=== PATIENT | female | born 1985 | race Caucasian/White ===

== ENCOUNTER → 2020-01-31 16:30 | Outpatient (CLI) | payer OTHER, SELFPAY ==
[2020-01-31 17:27] LABS: Add Manual Diff / Slide Review NO; Basophils Absolute Auto 100 /uL (0-100); Basophils Percent Auto 0.7 % (0-2); Eosinophils Absolute Auto 100 /uL (0-450); Eosinophils Percent Auto 1.4 % (2-4); Hemoglobin 14.1 g/dL (12.0-16.0); Lymphocytes Absolute Auto 2100 /uL (1100-4500); Lymphocytes Percent Auto 23.3 % (25-40); Mean Corpuscular HGB Conc 34.3 % (30-36); Mean Corpuscular Hemoglobin 30.2 PG (26-34); Mean Corpuscular Volume 88.3 fL (80-100); Monocytes Absolute Auto 500 /uL (0-900); Monocytes Percent Auto 5.3 % (3-14); Neutrophils Absolute Auto 6400 /uL (1500-7000); Neutrophils Percent Auto 69.3 % (50-75); Platelet Count 326 X10^3/uL (150-400); Red Blood Cell Count 4.65 X10^6/uL (4.0-5.2); Red Cell Distribution Width 13.8 % (11.6-14.8); White Blood Cell Count 9.2 X10^3/uL (4.5-11.0)
[2020-01-31 18:11] LABS: Appearance Urine UA CLEAR; Bilirubin Urine UA NEGATIVE (NEGATIVE); Color Urine UA YELLOW; Glucose Urine UA NEGATIVE (Negative); Ketones Urine UA NEGATIVE (NEGATIVE); Leukocyte Esterase Urine UA NEGATIVE (NEGATIVE); Nitrite Urine UA NEGATIVE (Negative); Occult Blood Urine UA TRACE-LYSED (Negative); Protein Urine UA NEGATIVE (Negative); Urobilinogen Urine UA 0.2 E.U./dL (0.2)
[2020-01-31 18:12] LABS: Hepatitis B Surface Antigen NEGATIVE s/c (NEGATIVE)
[2020-01-31 18:14] LABS: pH Urine UA 5.5 (4.5-8.0)
[2020-01-31 18:28] LABS: HIV 1 & 2 Ab/Ag 4th Gen Combo NEGATIVE (NEGATIVE); Hep C Virus Ab w/Reflex Quant NEGATIVE s/c (NEGATIVE)
[2020-02-01 05:36] LABS: RPR Screen Non Reactive (Non Reactive)
[2020-02-01 10:12] LABS: Varicella IgG Antibody 2693 index (Immune >165)
== END ==
PROVIDERS: Referring Provider Specialist; Visit Provider Specialist
DX: O09.521 Supervision of elderly multigravida, first trimester (principal)
CPT/HCPCS: 36415; 80055; 81003; 86787; 86803; 86850; 86900; 86901; 87086; 87389

== ENCOUNTER → 2020-02-29 14:41 | Outpatient (CLI) | payer OTHER, SELFPAY | PROVIDERS: Referring Provider Specialist; Visit Provider Specialist | DX: O09.529 Supervision of elderly multigravida, unspecified trimester (principal); Z36.0 Encounter for antenatal screening for chromosomal anomalies; Z3A.12 12 weeks gestation of pregnancy | CPT/HCPCS: 36415; 81420 ==

== ENCOUNTER → 2020-04-25 13:27 | Outpatient (CLI) | payer OTHER, SELFPAY ==
--- NOTE | 2020-04-25 | DI.US.S_ITS ---
PROCEDURE: US OB >= 14 WEEKS FETUS INDICATIONS: ANATOMY OUTSIDE/PRIOR DATING DATA: Last menstrual period (LMP): Unknown. LMP-based estimated date of delivery (RANULFO): Unknown . First dating scan (date and location): This examination . Estimated date of delivery (RANULFO) from first dating scan: 09/10/20 . TECHNIQUE: Real-time scanning was performed of the fetus, with image documentation and biometric measurements. Endovaginal scanning: Not performed COMPARISON: None. FINDINGS: General: A single living intrauterine gestation is present. Presentation: Variable. Placenta: Placental position is posterior , without previa. Amniotic fluid index: 16.5 cm, normal range is 5-24 cm. Largest pocket 5.6 cm heart rate: 139 beats per minute. Maternal cervical canal: 4.0 cm long. Normal lower limit is 2.5 cm. biometrics: Biparietal diameter: 4.8 cm, 20 weeks 4 days Head circumference: 17.4 cm, 20 weeks 0 days Abdominal circumference: 15.4 cm, 20 weeks 4 days Femur length: 3.2 cm, 20 weeks 0 days Estimated gestational age from initial scan: not applicable. Composite gestational age from present scan: 20 weeks 2 days Estimated weight and percentile: 343 g Measurement variability for biometric dating: +/- 7 days from 14 weeks to 15 weeks 6 days gestation, +/- 10 days from 16 weeks to 21 weeks 6 days gestation, +/- 2 weeks from 22 weeks to 27 weeks 6 days gestation, +/- 3 weeks for 28 weeks gestation or later. weight reference: 4500 g or EFW >90/95% is considered macrosomia or large for gestational age. EFW <10% is small for gestational age. EFW 5% or less is considered intra-uterine growth restriction. Anatomic survey: Neuro: Ventricles are non-dilated at less than 10 mm. Cisterna magna is normal at 3-11 mm. Cerebellum is normal in size and morphology. Nuchal skin fold: Normal at less than 6 mm between 14-21 weeks gestational age. Face: Not well seen Spine: The sacral spine is not well visualized. Heart: 4-chambered heart is present, with normal ventricular outflow tracts. Diaphragm: Diaphragm is intact. Stomach: Left-sided stomach is present. Kidneys: No hydronephrosis. Normal is less than 5 mm in 2nd trimester, less than 7 mm in 3rd trimester. Cord: 3-vessel cord has orthotopic insertion. Bladder: Normal in size. Extremities: All 4 extremities identified. IMPRESSION: Single living intrauterine fetus with a gestational age of 20 weeks and 2 days by today's ultrasound measurements. face and profile, sacral spine not well seen. Recommend follow-up. Remaining anatomic survey within normal limits. Dictated by: Leonel Waters M.D. on 04/25/2020 at 18:05 Approved by: Leonel Waters M.D. on 04/25/2020 at 18:07
== END ==
PROVIDERS: PCP Specialist; Referring Provider Specialist; Visit Provider Specialist
DX: Z34.02 Encounter for supervision of normal first pregnancy, second trimester (principal); Z3A.20 20 weeks gestation of pregnancy
CPT/HCPCS: 76811

== ENCOUNTER → 2020-07-03 12:35 | Outpatient (CLI) | payer OTHER, SELFPAY ==
[2020-07-03 14:17] LABS: Hematocrit 28.5 % (36-46); Hemoglobin 9.6 g/dL (12.0-16.0)
[2020-07-03 15:11] LABS: GTT (PREG) 1 Hour PP 50gm Dose 78 mg/dL (76-139)
[2020-07-03 15:38] LABS: TSH w/ Reflex to FT4 1.26 uIU/mL (0.47-4.68)
== END ==
PROVIDERS: Referring Provider Specialist; Visit Provider Specialist
DX: Z34.82 Encounter for supervision of other normal pregnancy, second trimester (principal); R53.83 Other fatigue; Z3A.24 24 weeks gestation of pregnancy
CPT/HCPCS: 36415; 82950; 84443; 85014; 85018

== ENCOUNTER → 2020-07-08 09:32 | Outpatient (CLI) | payer OTHER, SELFPAY ==
[2020-07-08 10:27] LABS: COVID19 -Nasal RAPID Negative (Negative)
== END ==
PROVIDERS: Visit Provider Physician Assistant
DX: J02.9 Acute pharyngitis, unspecified (principal); R05 Cough; R09.89 Other specified symptoms and signs involving the circulatory and respiratory systems; R51.9 Headache, unspecified; R53.83 Other fatigue
CPT/HCPCS: 87635

== ENCOUNTER → 2020-07-22 14:00 | Oncology outpatient (ONC) | payer OTHER, SELFPAY ==
[2020-07-09 13:00] VITALS: BP 102/63; PULSE 67; RESP 18; TEMP 36.6; O2SAT 97
[2020-07-09] MEDS: IRON SUCROSE 100 MG in SODIUM CHLORIDE 0.9% 100 ML 210 ML IV (13:38)
[2020-07-09 14:41] VITALS: BP 113/69; PULSE 69; RESP 16; TEMP 36.8; O2SAT 96
[2020-07-14] MEDS: IRON SUCROSE 300 MG in SODIUM CHLORIDE 0.9% 250 ML 176.667 ML IV (14:41)
[2020-07-14 16:24] VITALS: BP 105/62; PULSE 73; RESP 16; TEMP 36.9; O2SAT 97
[2020-07-22] MEDS: IRON SUCROSE 300 MG in SODIUM CHLORIDE 0.9% 250 ML 176.667 ML IV (14:25)
[2020-07-22 14:30] VITALS: BP 116/66; PULSE 86; RESP 16; TEMP 36.9; O2SAT 98
== END ==
PROVIDERS: Referring Provider Obstetrics & Gynecology; Visit Provider Obstetrics & Gynecology
DX: O99.013 Anemia complicating pregnancy, third trimester (principal); D64.9 Anemia, unspecified; Z3A.32 32 weeks gestation of pregnancy
CPT/HCPCS: 96365; 96366; J1756

== ENCOUNTER → 2020-08-11 13:57 | Outpatient (CLI) | payer OTHER, SELFPAY ==
[2020-08-12 07:49] LABS: Strep Grp B PCR NEG for Grp B Strep
== END ==
PROVIDERS: Visit Provider Specialist
DX: Z34.03 Encounter for supervision of normal first pregnancy, third trimester (principal); Z3A.35 35 weeks gestation of pregnancy
CPT/HCPCS: 87653

== ENCOUNTER 2020-09-03 18:29 | Inpatient (IN) | payer OTHER, SELFPAY ==
[2020-09-03 18:36] VITALS: BP 104/52
[2020-09-03] MEDS: DINOPROSTONE VAG (CERVIDIL) 10 MG VAG (20:03)
[2020-09-03 20:12] LABS: Add Manual Diff / Slide Review NO; Basophils Absolute Auto 100 /uL (0-100); Basophils Percent Auto 0.7 % (0-2); Eosinophils Absolute Auto 100 /uL (0-450); Eosinophils Percent Auto 0.8 % (2-4); Hematocrit 34.3 % (36-46); Hemoglobin 11.3 g/dL (12.0-16.0); Lymphocytes Absolute Auto 2500 /uL (1100-4500); Lymphocytes Percent Auto 16.4 % (25-40); Mean Corpuscular HGB Conc 32.8 % (30-36); Mean Corpuscular Hemoglobin 28.3 PG (26-34); Mean Corpuscular Volume 86.2 fL (80-100); Monocytes Absolute Auto 900 /uL (0-900); Monocytes Percent Auto 6.1 % (3-14); Neutrophils Absolute Auto 11500 /uL (1500-7000); Platelet Count 257 X10^3/uL (150-400); Red Blood Cell Count 3.99 X10^6/uL (4.0-5.2); Red Cell Distribution Width 20.3 % (11.6-14.8); White Blood Cell Count 15.1 X10^3/uL (4.5-11.0)
[2020-09-03 20:25] LABS: COVID19 -Nasal RAPID Negative (Negative)
[2020-09-03 20:33] LABS: Anisocytosis 1+; Macrocytosis 1+
[2020-09-03] MEDS: ZOLPIDEM 5 MG TABLET PO (23:52)
--- NOTE | 2020-09-04 | PATH_ITS ---
[facility] Accession Number: [id number] . 01 Material submitted: . PART A: uterus - UTERINE FIBROID PART B: abdomen - LOWER ABDOMINAL MOLE . 01 Clinical history: . EVAL OF LABOR . 02 Diagnosis: A. Uterine Fibroid (Weight 130 Grams): Leiomyoma (11.0 x 7.0 x 7.0 cm). Negative for cytologic atypia, increased mitotic activity, or necrosis. Negative for histomorphologic features of malignancy. . B. Skin, Lower Abdominal Mole: Specimen submitted to the Dermatopathology Service for review; that interpretation will be reported as an addendum. I 09/11/2020 1329 Local . 02 Electronically signed: . Julieta De La Rosa MD, Pathologist NPI- [id number] . 01 Gross description: . A. Specimen A is received in formalin, labeled uterine fibroid and consists of a 130 gram, 11.0 x 7.0 x 7.0 cm garcía-pink leiomyoma, which is sectioned to reveal garcía-white, whorled cut surfaces with no areas of hemorrhage, necrosis, or cystic degeneration. Biophysics Teacher sections are submitted in cassettes A1-A6. B. Specimen B is received in formalin, labeled lower abdominal mole and consists of a 1.0 x 0.8 x 0.6 cm brown skin nodule, which is inked blue, bisected and entirely submitted in cassette B1. ([id number]) /[facility] 09/09/2020 1631 Local . 02 Pathologist provided ICD-10: D25.9, D23.9 . 02 CPT . 013995, [id number] Performed at: 01 [facility] [address] [place] [address] [address], [place], [place] [id number] MD Klaus Beckman MD Phone: [phone] Performed at: 02 [facility] [id number] [place] [id number] MD Cherise Stern MD Phone: [phone]
[2020-09-04] MEDS: LACTATED RINGERS 1,000 ML 100 ML IV ×3 (08:02→18:08)
[2020-09-04] MEDS: OXYTOCIN PREMIX 30 UNIT/500 ML PLAST..BAG IV (08:03)
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
--- NOTE | 2020-09-04 19:22 | PM.OBPNLAB ---
Date/Time Date Patient Seen: 09/04/20 Time Patient Seen: 19:22 Pain Control Pain control: epidural Pelvic Exam Dilation (cm): 3 Effacement (%): 80 station: -1 Amniotic membrane status: Ruptured Contractions Contractions on admission: none Monitor mode: External Pitocin rate (mU/min): 4 Contraction frequency (min): 3 Contraction duration (min): 1 Contraction pattern: Regular Contraction intensity: Strong/Firm Status status: Category ll Heart Rate Baseline: 125 Monitor Accelerations: Present Monitor Decelerations: Prolonged, Recurrent and Variable Monitor Variability: Moderate Assessment and Plan Plan: Comments: Assessment: 35-year-old 1 para 0 at 39 weeks gestation with intolerance of labor Discussed with patient and her that we are having recurrent prolonged late decelerations with minimal Pitocin, and no cervical change intolerance of labor Plan: Primary section The risks, benefits, and alternatives to the procedure were explained to the patient. The risks including bleeding, infection, injury to the bowel, bladder, or ureters. She understands these risks and agrees to proceed. A full par Q was held and consent form was signed.
--- NOTE | 2020-09-04 19:28 | PM.GYNOP.1 ---
Operative Date/Time/Diagnoses Date of procedure: 09/04/20 Time of procedure: 20:43 Pre-op diagnosis: intolerance of labor Post-op diagnosis: same Procedure & Clinicians Procedure: Procedures Operation Date: 09/04/20 19:00 Actual Procedures Side Surgeon p Section Radha Devine MD Indications: intolerance of labor Surgeon: Radha Devine Assistant Boiler Operator: Betty Little Anesthesia Type: Epidural Operative Notes Findings: Live male in the direct occiput posterior presentation 10 cm lower uterine segment fibroid Very thickened lower uterine segment Closure Type: primary Applied: catheter Blood products transfused: none Procedure in detail: The patient was taken to the operating room where she was placed in the dorsal supine position with a leftward tilt. She was prepped and draped in the usual sterile fashion. A timeout was performed. After spinal analgesia was found to be adequate, a Pfannenstiel skin incision was made 2 fingerbreadths above the pubic symphysis and carried through to the underlying layer fascia. The fascia was nicked in the midline, and the incision extended bilaterally with the Butcher scissors. The superior aspect of the fascial incision was grasped with a [place] clamps, elevated, and the underlying rectus muscles dissected off sharply and bluntly. Attention was then turned to the inferior aspect of this incision which in a similar fashion was grasped with a [place] clamps, elevated, and the underlying rectus muscles dissected off sharply and bluntly. The rectus muscles were in the midline. The peritoneum was identified, grasped between 2 hemostats, and entered sharply with the Metzenbaum scissors. This incision was extended superiorly and inferiorly with good visualization of the bladder. The bladder blade was inserted. The vesicouterine peritoneum was identified, grasped with the pickup, and entered sharply with the Metzenbaum scissors. This incision was extended bilaterally, and the bladder flap was created digitally. The bladder blade was reinserted. The lower uterine segment was incised in a transverse fashion with the scalpel. The lower uterine segment was found to be very thickened. There was found to be a fibroid in the lower uterine segment and this had to be dissected through. Upon entering the amniotic sac there was a small amount of clear amniotic fluid. The infant's head was delivered in the direct occiput posterior presentation with vacuum assistance. The nose and mouth were suctioned with bulb suction. The remainder of the body delivered without difficulty. The cord was double clamped and cut. The was handed off to waiting RN and RT. Cord pH and cord bloods were obtained. The placenta was delivered manually. The uterus was cleared of all clots and debris. A large fibroid approximately 10 cm was dissected out using the Bovie. The uterine incision was repaired with #1 chromic in a running interlocking fashion, and a second layer the same suture was used for an imbricating layer. The stasis was achieved. The tubes and ovaries were examined and were found to be normal. The gutters were cleared of all clots and debris. The bladder flap was reapproximated using 2-0 Vicryl in a running fashion. The parietal peritoneum was closed using 2-0 Vicryl in a running fashion. The fascia was reapproximated using 0 Vicryl in a running fashion. Subcutaneous layer was copiously irrigated with warm normal saline. 5 simple interrupted sutures of 3-0 Vicryl were placed to reapproximate the subcutaneous layer. The skin was closed with 4-0 undyed Vicryl in a subcuticular fashion. A 0.75 cm raised mole was excised with a 1 cm elliptical incision. The Bovie was used for hemostasis. Three simple interrupted sutures with 4-0 Biosyn. A Telfa was placed over this incision. Steri-Strips were placed over the uterine incision. An Aquacel dressing was placed. The uterus was expressed of a small amount of old blood. Sponge, lap, and instrument counts were correct x-2. The patient tolerated the procedure well, and was taken to PACU in stable condition. Complications: none Post-operative Condition: stable Disposition: PACU Plan for aftercare: To the Center after Recovery
[2020-09-04] MEDS: CEFAZOLIN 2 GM/100 ML FROZ.PIGGY IV (19:39)
--- NOTE | 2020-09-04 19:44 | SUR.OPER ---
Supine on Padded OR bed, head on pillow, safety belt at thigh, arms secured on padded arm boards at <90 degrees abduction. Bump under right buttock. Legs uncrossed with pillow under knees, gel pad to heels, tape over blanket to lower legs.
--- NOTE | 2020-09-04 20:02 | SUR.OPER ---
Viable male delivered at 19:56. Cord blood x2 vials, placenta and portion of cord sent with L&D RN.
[2020-09-04 20:46] VITALS: BP 113/65; PULSE 67; RESP 11; TEMP 36.7; O2SAT 100
[2020-09-04 20:56] VITALS: BP 111/66; PULSE 60; RESP 13; O2SAT 99
[2020-09-04 21:02] VITALS: BP 111/67; PULSE 59; RESP 11; O2SAT 100
[2020-09-04] MEDS: DEXTROSE 5%-LACTATED RINGERS 1,000 ML 100 ML IV (21:52)
[2020-09-04] MEDS: METHYLERGONOVINE 0.2 MG TABLET PO (21:53)
[2020-09-05] MEDS: KETOROLAC 30 MG/ML VIAL IV ×3 (01:50→14:13)
[2020-09-05] MEDS: METHYLERGONOVINE 0.2 MG TABLET PO ×3 (04:29→19:34)
[2020-09-05 06:29] LABS: Hematocrit 34.4 % (36-46); Hemoglobin 11.1 g/dL (12.0-16.0)
[2020-09-05 08:33] VITALS: TEMP 37.1
[2020-09-05] MEDS: DOCUSATE 250 MG CAPSULE PO (09:25)
[2020-09-05] MEDS: PRENATAL VIT,CALC/IRON/FOLIC 1 TABLET 1 TAB PO (09:25)
[2020-09-05] MEDS: OXYCODONE IR 5 MG TABLET PO ×2 (09:35→23:11)
--- NOTE | 2020-09-05 14:29 | PM.OBPN.1 ---
Subjective - OB Subjective Patient comments: incisional pain, tolerating diet and other (Chandra catheter removed recently) baby status: doing well and nursing well feeding status: exclusively breast feeding Date Patient Seen: 09/05/20 Time Patient Seen: 14:30 Exam Vital Signs (past 8 hours): - 09/05/20 08:33 Temperature 98.8 F Oxygen Delivery Method Room Air Narrative Exam Narrative: Generally: Patient is sitting up in bed, no acute distress Lungs: Clear to auscultation bilaterally Cardiovascular: Regular rate and rhythm Fundus: Firm at U -1 Incision: Clean dry and intact with Aquacel dressing Extremities: No edema, negative Homans Objective Labs Result Diagrams: 09/05/20 06:23 Labs: Laboratory Results - last 24 hr 09/05/20 06:23 Hgb 11.1 L Hct 34.4 L Assessment & Plan Plan day: 1 plan OB: routine postop care Time Spent With Patient Time: Total time spent is greater than 50% in coordination of care (as documented) at patient's floor/unit and/or counseling patient: Time with patient: less than 15 minutes
[2020-09-05 15:07] VITALS: TEMP 36.8
[2020-09-05] MEDS: ACETAMINOPHEN 325 MG TABLET 650 MG PO ×2 (15:07→21:00)
[2020-09-05] MEDS: IBUPROFEN 600 MG TABLET PO (19:33)
[2020-09-06] MEDS: IBUPROFEN 600 MG TABLET PO ×2 (01:56→08:14)
[2020-09-06] MEDS: ACETAMINOPHEN 325 MG TABLET 650 MG PO (04:05)
[2020-09-06] MEDS: MAGNESIUM HYDROXIDE 30 ML UDC PO (04:05)
[2020-09-06] MEDS: DOCUSATE 250 MG CAPSULE PO (06:47)
[2020-09-06] MEDS: LANOLIN OINT 7 GM 1 APPLIC TOP (08:14)
[2020-09-06] MEDS: PRENATAL VIT,CALC/IRON/FOLIC 1 TABLET 1 TAB PO (08:14)
[2020-09-06 08:38] VITALS: BP 111/67; PULSE 59; RESP 11; TEMP 36.8
--- NOTE | 2020-09-06 09:26 | P.DS_ITS ---
Discharge Providers Provider Date of admission: 09/03/20 18:29 Discharge Date: 09/06/20 Primary care physician: Doctor Gena MD Consults: Anesthesia 09/04/20 21:27 Consult to Elementary Math Tutor Routine Comment: Discharge provider: Radha Devine MD Summary Hospital Course Date Patient Seen: 09/06/20 Time Patient Seen: 09:28 Diagnoses: 39 weeks gestation intolerance of labor 10cm intramural lower uterine segment fibroid Primary C section Hospital Course: Patient is a 35-year-old 1 para 1 who presented on September 03, 2020 for Cervidil cervical ripening. She received 1 dose. On the morning of September 04, 2020 the Cervidil was removed her cervix was favorable with a Alanis score of 9. Pitocin was started. She slowly progressed into active labor. Throughout the day she had periods of late decelerations with contractions but with good recovery and moderate efgk-pi-dixq variability. By evening she had not prog ressed beyond 4 cm despite ruptured membranes and adequate contractions. She had another prolonged late deceleration lasting several minutes. A decision was made to proceed to a primary low-transverse section. She underwent a primary low-transverse section. She was found to have a 10 cm lower uterine segment anterior fibroid which was removed after the baby was delivered. Her course was unremarkable. Her pain is well controlled. She is tolerating a diet. She has been able to void without the catheter. No nausea or vomiting. She is ambulating without assistance. Peripartum Data Infant Delivery Method: Emergency Section Laceration Description: None Episiotomy description: None Procedures: Cervidil cervical ripening Pitocin induction of labor Artificial rupture of membranes Epidural analgesia Primary low-transverse section Excision of 10 cm lower uterine segment intramural fibroid complications: none 1: Gender: Male Disposition of : home Status at Discharge Cognitive/behavioral status at discharge: oriented Functional status at discharge: independent ambulation Overall status at discharge: patient is progressing back to baseline Time Spent with Patient Time attestation: Total time spent providing and/or coordinating discharge services: Time spent: Less than 30 minutes Objective Labs Result Diagrams: 09/05/20 06:23 Exam Vital Signs (past 8 hours): - 09/06/20 08:38 Temperature 98.2 F Pulse Rate 59 L Respiratory Rate 11 L Blood Pressure 111/67 Oxygen Delivery Method Room Air Narrative Exam Narrative: Patient is sitting up in bed, nursing infant, no acute distress Lungs: Clear to auscultation bilaterally Cardiovascular: Regular rate and rhythm Abdomen: Soft, good bowel sounds Fundus: Firm at U -1 Incision: Clean dry and intact with Aquacel dressing Extremities: Negative Homans, no edema Discharge Plan Discharge Plan Patient Disposition: Home Provider Discharge Comment: Call with fever, chills, redness or drainage around the incision, or bleeding vaginally more than a pad an hour Tylenol 650 mg every 6 hours Ibuprofen 600 mg every 6 hours Push fluids Stool softener until bowels are back to normal Discharge orders & Medications Prescriptions: New fluoxetine 20 mg capsule 20 mg PO DAILY Qty: 30 RF: 3 oxycodone 5 mg tablet 5 mg PO .q 4 hours PRN (Reason: pain) Qty: 20 RF: 0 Continued prenat.vits,anna,kho-pwav-xhvsf Tablet 1 tab PO DAILY RF: 0 Discontinued promethazine 25 mg suppository 25 mg [place] Q6H PRN (Reason: nausea and vomiting) Qty: 12 RF: 1 fluoxetine [Prozac] 40 mg capsule 40 mg PO DAILY RF: 0 ondansetron 4 mg tablet,disintegrating 4 mg PO Q8H PRN (Reason: nausea and vomiting) Qty: 20 RF: 2 omeprazole 40 mg capsule,delayed release(DR/EC) 40 mg PO DAILY Qty: 30 RF: 2 Follow up/Referrals: Radha Devine MD [Physician] - 09/11/20 4:30 pm (09/11 for dressing removal check in 15 minutes prior to appointment. 10/16 @ 1400 6 week follow up) Doctor Avery MD [Primary Care Provider] - Diet/Activity/Treatments Diet: Regular Activity: No heavy lifting. Nothing more than baby or a gallon of milk Skin/Wound/Dressing Care Report to your healthcare provider any signs of infection, such as:: chills, fever, increased pain, unusual drainage and unusual redness Dressing: Do not remove Visit Report/Discharge Packet Instructions: DI for Stand Alone Forms: Discharge: Care Discharge Data Primary Care Provider: Doctor Gena
== END 2020-09-06 10:23 | disposition home or self-care (01) | DRG 788 ==
PROVIDERS: Admitting Provider Obstetrics & Gynecology; Referring Provider Specialist; Visit Provider Obstetrics & Gynecology
PROC: 10D00Z1 Extraction of Products of Conception, Low, Open Approach (ICD-10-PCS; CPT 59514; principal; 2020-09-04 19:00)
DX: O76 Abnormality in fetal heart rate and rhythm complicating labor and delivery (principal); Z3A.39 39 weeks gestation of pregnancy; Z37.0 Single live birth; D25.1 Intramural leiomyoma of uterus; Z20.822 Contact with and (suspected) exposure to COVID-19
CPT/HCPCS: 01967; 01968; 36415; 58140; 59050; 59200; 59510; 59514; 85014; 85018; 85025; 86850; 86900; 86901; 87635; C9803; G0379; J0690; J1885; J2250; J2274; J2405; J2590; J7121

== ENCOUNTER → 2021-06-23 16:08 | Outpatient (CLI) | payer OTHER, SELFPAY ==
[2021-06-23 16:54] LABS: Add Manual Diff / Slide Review NO; Basophils Absolute Auto 0 /uL (0-100); Basophils Percent Auto 0.6 % (0-2); Eosinophils Absolute Auto 200 /uL (0-450); Eosinophils Percent Auto 2.1 % (2-4); Hematocrit 35.2 % (36-46); Hemoglobin 11.9 g/dL (12.0-16.0); Lymphocytes Absolute Auto 2100 /uL (1100-4500); Lymphocytes Percent Auto 24.9 % (25-40); Mean Corpuscular HGB Conc 33.7 % (30-36); Mean Corpuscular Volume 88.8 fL (80-100); Monocytes Absolute Auto 400 /uL (0-900); Neutrophils Absolute Auto 5800 /uL (1500-7000); Neutrophils Percent Auto 67.4 % (50-75); Platelet Count 286 X10^3/uL (150-400); Red Blood Cell Count 3.96 X10^6/uL (4.0-5.2); Red Cell Distribution Width 13.2 % (11.6-14.8); White Blood Cell Count 8.5 X10^3/uL (4.5-11.0)
[2021-06-23 17:49] LABS: Appearance Urine UA CLEAR; Bilirubin Urine UA NEGATIVE (NEGATIVE); Color Urine UA YELLOW; Glucose Urine UA NEGATIVE (Negative); Ketones Urine UA TRACE (NEGATIVE); Leukocyte Esterase Urine UA NEGATIVE (NEGATIVE); Nitrite Urine UA NEGATIVE (Negative); Occult Blood Urine UA TRACE-LYSED (Negative); Protein Urine UA NEGATIVE (Negative); Specific Gravity Urine UA 1.025 (1.000-1.035); Urobilinogen Urine UA 0.2 E.U./dL (0.2)
[2021-06-24 10:07] LABS: RPR Screen Non Reactive (Non Reactive)
[2021-06-24 11:24] LABS: Varicella IgG Antibody 1469 index (Immune >165)
[2021-06-25 16:14] LABS: Hepatitis B Surface Antigen NEGATIVE s/c (NEGATIVE); Rubella Antibody IgG 6.5 IU/mL (>15)
[2021-06-25 16:31] LABS: HIV 1 & 2 Ab/Ag 4th Gen Combo NEGATIVE (NEGATIVE); Hep C Virus Ab w/Reflex Quant NEGATIVE s/c (NEGATIVE)
== END ==
PROVIDERS: Referring Provider Obstetrics & Gynecology; Visit Provider Obstetrics & Gynecology
DX: Z34.81 Encounter for supervision of other normal pregnancy, first trimester (principal)
CPT/HCPCS: 36415; 80055; 81003; 86787; 86803; 86850; 86900; 86901; 87086; 87389

== ENCOUNTER → 2021-06-26 11:58 | Outpatient (CLI) | payer OTHER, SELFPAY | PROVIDERS: Referring Provider Obstetrics & Gynecology; Visit Provider Obstetrics & Gynecology | DX: O09.521 Supervision of elderly multigravida, first trimester (principal); Z36.0 Encounter for antenatal screening for chromosomal anomalies | CPT/HCPCS: 36415; 81420 ==

== ENCOUNTER 2021-07-21 12:20 | Emergency (ER) | payer OTHER, SELFPAY ==
[2021-07-21] VITALS (8 sets, daily range): BP systolic 90–106; BP diastolic 49–57; PULSE 51–72; RESP 18; TEMP 36.1–36.7; O2SAT 96–100; BMI 23.0
[2021-07-21] MEDS: ONDANSETRON 4 MG/2 ML INJ IV ×2 (13:52→14:37)
--- NOTE | 2021-07-21 14:06 | PC.NURSE ---
Nausea/vomiting consistently since 6am today. 16 weeks with twins. Has been having N/V through out , but today is worse. Associated abdominal pain.
[2021-07-21 14:16] LABS: COVID19 -Nasal RAPID Negative (Negative)
[2021-07-21] MEDS: SODIUM CHLORIDE 0.9% 1,000 ML 1000 ML IV ×2 (14:31→15:43)
[2021-07-21 14:32] LABS: Add Manual Diff / Slide Review NO; Basophils Absolute Auto 100 /uL (0-100); Basophils Percent Auto 0.5 % (0-2); Eosinophils Absolute Auto 0 /uL (0-450); Eosinophils Percent Auto 0.2 % (2-4); Hematocrit 35.3 % (36-46); Hemoglobin 11.9 g/dL (12.0-16.0); Lymphocytes Absolute Auto 900 /uL (1100-4500); Lymphocytes Percent Auto 6.9 % (25-40); Mean Corpuscular HGB Conc 33.8 % (30-36); Mean Corpuscular Hemoglobin 29.9 PG (26-34); Mean Corpuscular Volume 88.5 fL (80-100); Monocytes Absolute Auto 200 /uL (0-900); Monocytes Percent Auto 1.8 % (3-14); Neutrophils Absolute Auto 11500 /uL (1500-7000); Neutrophils Percent Auto 90.6 % (50-75); Platelet Count 329 X10^3/uL (150-400); Red Blood Cell Count 3.99 X10^6/uL (4.0-5.2); Red Cell Distribution Width 13.4 % (11.6-14.8); White Blood Cell Count 12.6 X10^3/uL (4.5-11.0)
[2021-07-21 14:36] LABS: Alanine Aminotransferase 15 IU/L (<35); Albumin 4.2 g/dL (3.5-5.0); Albumin Globulin Ratio 1.4 (1.0-2.8); Alkaline Phosphatase 59 U/L (38-126); Aspartate Aminotransferase 25 IU/L (14-36); BUN Creatinine Ratio 30.2 (6-22); Bilirubin Total 0.5 mg/dL (0.2-1.3); Blood Urea Nitrogen 13 mg/dL (7-17); Calcium 9.2 mg/dL (8.4-10.2); Carbon Dioxide 21 mmol/L (22-32); Chloride 109 mmol/L (98-107); Estimated Glomerular Filt Rate > 60.0 mL/min (>60); Globulin 3.1 g/dL (1.7-4.1); Glucose 127 mg/dL (70-100); HEMOLYSIS < 15 (0-50); Lipase 64 U/L (23-300); Potassium 3.2 mmol/L (3.4-5.1); Sodium 138 mmol/L (137-145); Total Protein 7.3 g/dL (6.3-8.2)
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
[2021-07-21] MEDS: PANTOPRAZOLE 40 MG VIAL IV (15:43)
[2021-07-21] MEDS: METOCLOPRAMIDE 10 MG/2 ML INJ IV (15:44)
--- NOTE | 2021-07-21 16:31 | DI.US.S_ITS ---
PROCEDURE: US OB LIMITED INDICATIONS: CRAMPING OUTSIDE/PRIOR DATING DATA: Last menstrual period (LMP): April 17, 2021 LMP-based estimated date of delivery (RANULFO): January 22, 2022 First dating scan (date and location): June 23, 2021 Estimated date of delivery (RANULFO) from first dating scan: January 15, 2022 The calculations are made using the ultrasound RANULFO of January 15, 2022 TECHNIQUE: Real-time scanning was performed of the fetuses, with image documentation and biometric measurements. Endovaginal scanning: Performed COMPARISON: [facility], US, US OB <= 14 WEEKS FETUS, 06/23/2021, 16:49. FINDINGS: General: An intrauterine monochorionic-diamniotic twin is present, as evidenced by separate placentas, differing sexes, or an intervening membrane of greater than 2 mm. Composite amniotic fluid index: 9.3 cm. Maternal cervical canal: Closed and 3.6 cm long. Normal lower limit is 2.5 cm. FETUS A: Fetus is in transverse head right presentation. Largest amniotic fluid pocket: 2.6 cm, normal is 2-8 cm. Placental position is posterior, without previa. heart rate: 155 beats per minute. FETUS B: Fetus is in cephalic presentation. Largest amniotic fluid pocket: 2.6 cm, normal is 2-8 cm. Placental position is posterior without previa. heart rate: 162 beats per minute. IMPRESSION: Limited examination demonstrates living intrauterine twin . Amniotic fluid is subjectively within normal limits with the combined PIERRE of 9.3 centimeters. Dictated by: Alba Bedolla MD, PhD on 07/21/2021 at 17:39 Approved by: Alba Bedolla MD, PhD on 07/21/2021 at 17:45
[2021-07-21 18:27] LABS: Bacteria Urine Few (2-10); Culture Indicated Urine Cult Not Indicated; RBC Urine 0-1/HPF (0-5/HPF); Squamous Epithelial Cell Urine 1-5 /HPF (0-5/HPF); WBC Urine 0-1/HPF (0-5/HPF)
== END 2021-07-21 18:10 | disposition home or self-care (01) ==
PROVIDERS: Emergency Provider Emergency Medicine; PCP Obstetrics & Gynecology
DX: O21.0 Mild hyperemesis gravidarum (principal); O30.032 Twin pregnancy, monochorionic/diamniotic, second trimester; Z3A.16 16 weeks gestation of pregnancy; Z20.822 Contact with and (suspected) exposure to COVID-19
CPT/HCPCS: 36415; 76812; 76815; 80053; 81003; 81015; 83690; 85025; 87635; 96361; 96374; 96375; 96376; 99284; C9803; C9113; J2405; J2765

== ENCOUNTER → 2021-07-30 14:01 | Outpatient (CLI) | payer OTHER, SELFPAY ==
[2021-07-30 16:09] LABS: Urine N gonorrhoeae NOT DETECTED
[2021-07-30 16:28] LABS: Urine Chlamydia NOT DETECTED
[2021-08-03 13:36] LABS: AFP Value 30.7 ng/mL (.); Gestational Age Ultrasound (.); Insulin Dep Diabetes No (.); OSBR Risk 1IN 10000 (.); Results Report (.); Test Results *Screen Negative* (.)
== END ==
PROVIDERS: PCP Obstetrics & Gynecology; Referring Provider Obstetrics & Gynecology; Visit Provider Obstetrics & Gynecology
DX: O30.049 Twin pregnancy, dichorionic/diamniotic, unspecified trimester (principal); Z3A.16 16 weeks gestation of pregnancy
CPT/HCPCS: 36415; 82105; 87491; 87591

== ENCOUNTER → 2021-08-31 12:39 | Outpatient (CLI) | payer OTHER, SELFPAY ==
--- NOTE | 2021-08-31 12:40 | DI.US.S_ITS ---
PROCEDURE: US OB >= 14 WK FETUS ADD GEST INDICATIONS: ANATOMY OUTSIDE/PRIOR DATING DATA: Last menstrual period (LMP): April 17, 2021. LMP-based estimated date of delivery (RANULFO): January 22, 2022. First dating scan (date): June 23, 2021. Estimated date of delivery (RANULFO) from first dating scan: January 15, 2022. TECHNIQUE: Real-time scanning was performed of the fetuses, with image documentation and biometric measurements. COMPARISON: None. FINDINGS: General: An intrauterine dichorionic-diamniotic twin is present, as evidenced by separate placentas, differing sexes, or an intervening membrane of greater than 2 mm. Maternal cervical canal: 4.2 cm long. Normal lower limit is 2.5 cm. FETUS A: Fetus is in vertex presentation. Largest amniotic fluid pocket: 5.5 cm; normal range is 2-8 cm. Placental position is posterior , without previa. heart rate: 147 beats per minute. biometrics: Biparietal diameter: 5.2 cm Head circumference: 18.2 cm Abdominal circumference: 15.4 cm Femur length: 3.2 cm Clinically estimated gestational age: 20 weeks, 3 days Composite gestational age from present scan: 20 weeks, 5 days Estimated weight and percentile: 353 g; 43rd percentile Anatomic survey: Neuro: Ventricles are normal at less than 10 mm. Cisterna magna is normal at 3-11 mm. Cerebellum is normal in size and morphology. Nuchal skin fold: Normal at less than 6 mm between 14 and 21 weeks gestational age. Face: Nose and lips, facial profile are normal. Spine: No evidence for spina bifida. Heart: 4 chambered heart is present. Right outflow tract not well seen. Diaphragm: Diaphragm is intact. Stomach: Left-sided stomach is present. Kidneys: No hydronephrosis. Normal ranges are less than 5 mm in 2nd trimester, less than 7 mm in 3rd trimester. Cord: 3 vessel cord has orthotopic insertion. Bladder: Normal in size. Extremities: All 4 extremities are visualized. FETUS B: Fetus is in breech presentation. Largest amniotic fluid pocket: 5.8 cm; normal range is 2-8 cm. Placental position is posterior , without previa. heart rate: 150 beats per minute. biometrics: Biparietal diameter: 5 cm Head circumference: 18.1 cm Abdominal circumference: 16.2 cm Femur length: 3.3 cm Clinically estimated gestational age: 20 weeks, 3 days Composite gestational age from present scan: 20 weeks, 5 days Estimated weight and percentile: 376 g; 65th percentile Anatomic survey: Neuro: Ventricles are normal at less than 10 mm. Cisterna magna is normal at 3-11 mm. Cerebellum is normal in size and morphology. Nuchal skin fold: Normal at less than 6 mm between 14 and 21 weeks gestational age. Face: Nose and lips, facial profile are normal. Spine: No evidence for spina bifida. Heart: Not well seen. Diaphragm: Diaphragm is intact. Stomach: Left-sided stomach is present. A thin linear focus is seen within the stomach. Kidneys: No hydronephrosis. Normal ranges are less than 5 mm in 2nd trimester, less than 7 mm in 3rd trimester. Cord: 3 vessel cord has orthotopic insertion. Bladder: Normal in size. Extremities: 3 extremities are visualized. Left upper limb not well seen. IMPRESSION: 1. Live twin intrauterine gestation as detailed above. 2. Right outflow tract not well seen in fetus A. 3. Left upper limb and hard are not well visualized in fetus B. 4. Thin linear focus within the stomach, which which may reflect a septation or pseudomass. We strive to produce accurate, complete, and clear reports of imaging services. To assist us in improving patient care, this report was composed using standard report templates and voice recognition software. Therefore, it may contain abnormal punctuation, insertions and/or omissions. Occasional wrong-word or sound-alike substitutions may occur. Though we review the report and make efforts to correct it, we do recommend that the report be read carefully in proper context to recognize any text inaccuracies. Dictated by: Sabino Panda M.D. on 09/01/2021 at 8:34 Approved by: Sabino Panda M.D. on 09/01/2021 at 8:56
== END ==
PROVIDERS: PCP Obstetrics & Gynecology; Referring Provider Obstetrics & Gynecology; Visit Provider Obstetrics & Gynecology
DX: Z3A.20 20 weeks gestation of pregnancy; O30.042 Twin pregnancy, dichorionic/diamniotic, second trimester
CPT/HCPCS: 76811; 76812

== ENCOUNTER 2021-09-21 09:01 | Observation (INO) | payer OTHER, SELFPAY ==
[2021-09-21 09:11] VITALS: PULSE 79; RESP 24; TEMP 36; O2SAT 100; BMI 25.2
[2021-09-21] MEDS: SODIUM CHLORIDE 0.9% 1,000 ML 1000 ML IV ×2 (09:26→09:56)
[2021-09-21 09:27] LABS: Add Manual Diff / Slide Review NO; Basophils Absolute Auto 100 /uL (0-100); Basophils Percent Auto 0.7 % (0-2); Eosinophils Absolute Auto 200 /uL (0-450); Eosinophils Percent Auto 1.5 % (2-4); Hematocrit 36.3 % (36-46); Hemoglobin 12.1 g/dL (12.0-16.0); Lymphocytes Absolute Auto 1700 /uL (1100-4500); Lymphocytes Percent Auto 16.2 % (25-40); Mean Corpuscular HGB Conc 33.4 % (30-36); Mean Corpuscular Hemoglobin 29.6 PG (26-34); Mean Corpuscular Volume 88.4 fL (80-100); Monocytes Absolute Auto 600 /uL (0-900); Monocytes Percent Auto 5.6 % (3-14); Neutrophils Absolute Auto 8100 /uL (1500-7000); Platelet Count 286 X10^3/uL (150-400); Red Cell Distribution Width 14.3 % (11.6-14.8); White Blood Cell Count 10.6 X10^3/uL (4.5-11.0)
[2021-09-21] MEDS: PANTOPRAZOLE 40 MG VIAL IV (09:27)
[2021-09-21] MEDS: ONDANSETRON 4 MG/2 ML INJ IV ×2 (09:27→12:45)
[2021-09-21 09:45] LABS: Alanine Aminotransferase 19 IU/L (<35); Albumin 3.9 g/dL (3.5-5.0); Albumin Globulin Ratio 1.3 (1.0-2.8); Alkaline Phosphatase 80 U/L (38-126); Aspartate Aminotransferase 32 IU/L (14-36); Bilirubin Total 0.2 mg/dL (0.2-1.3); Blood Urea Nitrogen 8 mg/dL (7-17); Calcium 8.8 mg/dL (8.4-10.2); Carbon Dioxide 24 mmol/L (22-32); Chloride 106 mmol/L (98-107); Estimated Glomerular Filt Rate > 60.0 mL/min (>60); Glucose 100 mg/dL (70-100); HEMOLYSIS < 15 (0-50); Lipase 122 U/L (23-300); Potassium 3.3 mmol/L (3.4-5.1); Sodium 137 mmol/L (137-145); Total Protein 6.9 g/dL (6.3-8.2)
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
[2021-09-21] MEDS: METOCLOPRAMIDE 10 MG/2 ML INJ IV (09:56)
[2021-09-21] MEDS: hydrOXYzine 50 MG/ML INJ IM (10:43)
--- NOTE | 2021-09-21 10:43 | DI.US.S_ITS ---
PROCEDURE: US OB LIMITED INDICATIONS: VOMITING, ABDOMEN PAIN OUTSIDE/PRIOR DATING DATA: Last menstrual period (LMP): 04/17/2021. LMP-based estimated date of delivery (RANULFO): 01/22/2022. First dating scan (date and location): 06/23/2021. Estimated date of delivery (RANULFO) from first dating scan: 01/15/2022. TECHNIQUE: Real-time scanning was performed of the fetuses, with image documentation and biometric measurements. Endovaginal scanning: None COMPARISON: [facility], US OB LIMITED, 07/21/2021, 17:07. FINDINGS: Quality: Study is limited by patient inability to cooperate with exam General: An intrauterine dichorionic-diamniotic twin is present, as evidenced by separate placentas, differing sexes, or an intervening membrane of greater than 2 mm. Maternal cervical canal: 4.2 cm long. Normal lower limit is 2.5 cm. FETUS A: Fetus is located on the maternal right side, and is in cephalic presentation. Largest amniotic fluid pocket: 4.6 cm, normal is 2-8 cm. Placental position is posterior , without previa or abruption. heart rate: 168 beats per minute. FETUS B: Fetus is located on the maternal left side, and is in cephalic presentation. Largest amniotic fluid pocket: 6.3 cm, normal is 2-8 cm. Placental position is posterior, without previa or abruption. heart rate: 160 beats per minute. Clinically estimated gestational age of both twins: 23 week 3 day IMPRESSION: Twin consistent with a 23 week 3 day gestation No evidence of placental abruption Approved by: Ran Marroquin M.D. on 09/21/2021 at 11:02
--- NOTE | 2021-09-21 11:00 | PC.NURSE ---
Arrived to ED to doppler fht's on patient with hyperemesis. Pt. with twins and laying on left side. 2 separate dopplers used to auscultate fhr. FHR's 150's, unable to distinguish between baby A and baby B d/t maternal positioning and vomiting. Abdomen palpates soft however patient c/o pain that she states feels like contractions. ED MD updated as well as Dr. Devine.
[2021-09-21 11:48] VITALS: BP 101/58; PULSE 68; RESP 22; O2SAT 100
--- NOTE | 2021-09-21 12:15 | PC.NURSE ---
pt up from ED via stretcher. pt ambulatory. pt moaing and has n/v. pt dry heaving. pt denies uterine cramping, bleeding, leaking. pt states she's very cold. pt denies diarrhea. pt states her stomac is very upset. pt placed on toco monitor to monitor for contractions. Dr. Devine notified of pt's arrival and complaints.
--- NOTE | 2021-09-21 12:30 | PC.NURSE ---
pt given iv fluids and Zofran for n/v and hydration. pt resting and states she feels better.
[2021-09-21] MEDS: LACTATED RINGERS 1,000 ML 1000 ML IV (12:45)
--- NOTE | 2021-09-21 13:45 | PC.NURSE ---
iv infusion complete. poc was to send pt home with teresaien after fluid bolus and zofran per Dr. Devine. pt refused and states something is wrong and she feels too sick to go home. pt informed that Dr. Devine would be notified.
--- NOTE | 2021-09-21 14:25 | PC.NURSE ---
Dr. Devine notified of pt complaints and refusal to go home. no contractions noted with toco. pt c/o stomach pain. pain medication orders requested. Dr. Devine orders pt to be admitted to [facility] and states she will put orders in.
--- NOTE | 2021-09-21 15:00 | PC.NURSE ---
giving reports to Sofia (rn medsurg) she states pt need covid test and results before admission to medsurg unit. test ordered and obtained.
--- NOTE | 2021-09-21 15:30 | PC.NURSE ---
pt up to shower to help with abdominal pain while awaiting covid results.
[2021-09-21 15:58] LABS: COVID19 -Nasal RAPID Negative (Negative)
[2021-09-21] MEDS: LACTATED RINGERS 1,000 ML 150 ML IV ×2 (16:38→16:42)
[2021-09-21 16:39] VITALS: BP 93/40; PULSE 77; RESP 16; TEMP 37.3; O2SAT 97
--- NOTE | 2021-09-21 16:45 | PC.NURSE ---
pt transferred via w/c to [facility] med surg. pt assisted into bed. pt states she has been feeling better (less pain) for about 15 minutes. pt still gagging and having nausea.
[2021-09-21 16:50] VITALS: BMI 26.1
[2021-09-21 18:34] LABS: Add Manual Diff / Slide Review NO; Basophils Absolute Auto 100 /uL (0-100); Basophils Percent Auto 0.6 % (0-2); Eosinophils Absolute Auto 0 /uL (0-450); Hemoglobin 10.1 g/dL (12.0-16.0); Lymphocytes Absolute Auto 1200 /uL (1100-4500); Lymphocytes Percent Auto 9.7 % (25-40); Mean Corpuscular HGB Conc 33.8 % (30-36); Mean Corpuscular Hemoglobin 29.7 PG (26-34); Mean Corpuscular Volume 87.9 fL (80-100); Monocytes Absolute Auto 300 /uL (0-900); Monocytes Percent Auto 2.7 % (3-14); Neutrophils Absolute Auto 11000 /uL (1500-7000); Platelet Count 240 X10^3/uL (150-400); Red Blood Cell Count 3.41 X10^6/uL (4.0-5.2); Red Cell Distribution Width 13.9 % (11.6-14.8); White Blood Cell Count 12.6 X10^3/uL (4.5-11.0)
[2021-09-21 18:48] LABS: Alanine Aminotransferase 16 IU/L (<35); Albumin 2.8 g/dL (3.5-5.0); Albumin Globulin Ratio 1.1 (1.0-2.8); Alkaline Phosphatase 66 U/L (38-126); Aspartate Aminotransferase 37 IU/L (14-36); BUN Creatinine Ratio 16.7 (6-22); Bilirubin Total 0.3 mg/dL (0.2-1.3); Blood Urea Nitrogen 7 mg/dL (7-17); Calcium 7.5 mg/dL (8.4-10.2); Carbon Dioxide 22 mmol/L (22-32); Chloride 110 mmol/L (98-107); Estimated Glomerular Filt Rate > 60.0 mL/min (>60); Globulin 2.6 g/dL (1.7-4.1); Glucose 95 mg/dL (70-100); HEMOLYSIS < 15 (0-50); Sodium 135 mmol/L (137-145); Total Protein 5.4 g/dL (6.3-8.2)
[2021-09-21 18:50] VITALS: BP 93/47; PULSE 69; TEMP 37.6; O2SAT 94
--- NOTE | 2021-09-21 19:35 | PC.NURSE ---
Notified Dr. Little regarding pt's BP and lab results. pt needs to eat and drink if able since nausea has resolved. labs ordered for the morning.
[2021-09-21 19:50] VITALS: BP 95/46; PULSE 73; RESP 18; TEMP 36.8; O2SAT 96
[2021-09-21] MEDS: ZOLPIDEM 5 MG TABLET 10 MG PO (21:07)
[2021-09-21] MEDS: POTASSIUM CHLORIDE 40 MEQ in LACTATED RINGERS 1,000 ML 150 MEQ IV (23:22)
[2021-09-22 02:00] VITALS: BP 102/54; PULSE 60; RESP 18; TEMP 37.2; O2SAT 95
[2021-09-22] MEDS: POTASSIUM CHLORIDE 40 MEQ in LACTATED RINGERS 1,000 ML 150 MEQ IV (06:06)
[2021-09-22] MEDS: PANTOPRAZOLE DR 20 MG TABLET PO (06:27)
[2021-09-22 06:36] VITALS: BP 94/45; PULSE 66; RESP 18; TEMP 36.6; O2SAT 98
[2021-09-22 07:40] VITALS: BP 99/45; PULSE 71; RESP 16; TEMP 36.5; O2SAT 99
[2021-09-22 07:55] VITALS: O2SAT 98
[2021-09-22 08:19] LABS: Add Manual Diff / Slide Review NO; Basophils Absolute Auto 0 /uL (0-100); Basophils Percent Auto 0.4 % (0-2); Eosinophils Absolute Auto 100 /uL (0-450); Eosinophils Percent Auto 0.6 % (2-4); Hemoglobin 10.1 g/dL (12.0-16.0); Lymphocytes Absolute Auto 1600 /uL (1100-4500); Lymphocytes Percent Auto 18.2 % (25-40); Mean Corpuscular HGB Conc 33.8 % (30-36); Mean Corpuscular Hemoglobin 29.9 PG (26-34); Mean Corpuscular Volume 88.3 fL (80-100); Monocytes Absolute Auto 600 /uL (0-900); Monocytes Percent Auto 6.3 % (3-14); Neutrophils Absolute Auto 6600 /uL (1500-7000); Neutrophils Percent Auto 74.5 % (50-75); Platelet Count 221 X10^3/uL (150-400); Red Blood Cell Count 3.39 X10^6/uL (4.0-5.2); White Blood Cell Count 8.9 X10^3/uL (4.5-11.0)
[2021-09-22 08:25] LABS: BUN Creatinine Ratio 10.9 (6-22); Blood Urea Nitrogen 5 mg/dL (7-17); Calcium 7.4 mg/dL (8.4-10.2); Carbon Dioxide 24 mmol/L (22-32); Chloride 109 mmol/L (98-107); Estimated Glomerular Filt Rate > 60.0 mL/min (>60); Glucose 88 mg/dL (70-100); HEMOLYSIS < 15 (0-50); Potassium 3.6 mmol/L (3.4-5.1); Sodium 135 mmol/L (137-145)
--- NOTE | 2021-09-22 10:46 | CM.DANOTE ---
DCP: Case received, EMR reviewed and checked on patient. She has been sleeping. Put name of this information systems planner on white board. Was able to complete DCP assessment based upon information currently available. Patient is a 36 year old female who admitted yesterday morning to the care of the hospitalist team. PCP: Dr. Devine. Payer: confirmed: [employer] Patient came to the hospital via private vehicle due to nausea and dry heaves, from . Patient is 23 week twin at 23 weeks. Patient had attempted anti-nausea medication with no effect. She is here for nausea and IV hydration. Have not been able to meet with patient, but is noted that she resides with family in [facility], is self employed. She does get her primary care from Dr. Devine. P: DCP to continue to follow. Patient should be able to go home when she is deemed medically stable. Mayra Arrington RN/Mental Health Program Specialist Discharge Planning/Care Management CM Discharge Assessment Start: 09/22/21 10:38 Freq: Status: Active Protocol: Document 09/22/21 10:38 (Rec: 09/22/21 10:39 [id number]) Discharge Planning Assessment Assigned Office Technician Mayra Arrington, Advance Directives? No History Provided By Patient Prior Living Arrangements House Household Members spouse,children Document 09/22/21 10:45 (Rec: 09/22/21 10:46 [id number]) Discharge Planning Assessment Assigned Office Technician Mayra Arrington, Advance Directives? No History Provided By Patient,Medical Record Prior Living Arrangements House Household Members spouse,children Type of transporation used prior to Drives own vehicle admit Independent with ADL's Yes Is patient alert and oriented? Yes Caregiver for Another No Discharge Plan Home Transportation Arrangement Family Referrals Initiated None needed Whiteboard Updated in Patient Room with Yes name and ext. # of Office Technician Review Status In Process Next Review Type Continued Stay Review
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
== END 2021-09-22 13:38 | disposition home or self-care (01) ==
LOC: ED 09:51 → LABOR 11:21 → AC 16:33
PROVIDERS: Obstetrics & Gynecology; Admitting Provider Obstetrics & Gynecology; Emergency Provider Emergency Medicine; PCP Obstetrics & Gynecology; Referring Provider Emergency Medicine; Visit Provider Obstetrics & Gynecology
DX: O21.1 Hyperemesis gravidarum with metabolic disturbance (principal); Z3A.23 23 weeks gestation of pregnancy; Z20.822 Contact with and (suspected) exposure to COVID-19
CPT/HCPCS: 36415; 76812; 76815; 80048; 80053; 83690; 85025; 87635; 96361; 96365; 96366; 96372; 96375; 96376; 99219; 99284; C9803; G0378; C9113; J2405; J2765; J3410; J3480

== ENCOUNTER 2021-12-03 14:06 | Observation (INO) | payer OTHER, SELFPAY ==
[2021-12-03 15:29] LABS: Add Manual Diff / Slide Review NO; Basophils Absolute Auto 100 /uL (0-100); Basophils Percent Auto 0.9 % (0-2); Eosinophils Absolute Auto 0 /uL (0-450); Eosinophils Percent Auto 0.6 % (2-4); Hematocrit 31.8 % (36-46); Hemoglobin 10.4 g/dL (12.0-16.0); Lymphocytes Absolute Auto 1800 /uL (1100-4500); Mean Corpuscular HGB Conc 32.6 % (30-36); Mean Corpuscular Hemoglobin 26.5 PG (26-34); Mean Corpuscular Volume 81.2 fL (80-100); Monocytes Absolute Auto 400 /uL (0-900); Monocytes Percent Auto 5.8 % (3-14); Neutrophils Absolute Auto 5100 /uL (1500-7000); Neutrophils Percent Auto 68.7 % (50-75); Platelet Count 228 X10^3/uL (150-400); Red Blood Cell Count 3.92 X10^6/uL (4.0-5.2); White Blood Cell Count 7.4 X10^3/uL (4.5-11.0)
[2021-12-03] MEDS: LACTATED RINGERS 1,000 ML 1000 ML IV (15:30)
[2021-12-03 15:32] LABS: Alanine Aminotransferase 13 IU/L (<35); Albumin 3.2 g/dL (3.5-5.0); Alkaline Phosphatase 204 U/L (38-126); Aspartate Aminotransferase 26 IU/L (14-36); BUN Creatinine Ratio 13.2 (6-22); Bilirubin Total 0.4 mg/dL (0.2-1.3); Blood Urea Nitrogen 7 mg/dL (7-17); Calcium 8.1 mg/dL (8.4-10.2); Carbon Dioxide 20 mmol/L (22-32); Chloride 108 mmol/L (98-107); Estimated Glomerular Filt Rate > 60 mL/min (>60); Globulin 3.2 g/dL (1.7-4.1); Glucose 73 mg/dL (70-100); HEMOLYSIS < 15 (0-50); Potassium 3.9 mmol/L (3.4-5.1); Sodium 135 mmol/L (137-145); Total Protein 6.4 g/dL (6.3-8.2)
[2021-12-03 15:53] LABS: COVID19 -Nasal RAPID POSITIVE (Negative)
--- NOTE | 2021-12-03 15:57 | DI.US.S_ITS ---
PROCEDURE: US OB BIOPHYSICAL PROFILE INDICATIONS: OB MD order OUTSIDE/PRIOR DATING DATA: Last menstrual period (LMP): 04/17/2021. LMP-based estimated date of delivery (RANULFO): 01/22/2022 First dating scan (date and location): 06/23/2021 Estimated date of delivery (RANULFO) from first dating scan: 01/15/2022 TECHNIQUE: Real-time scanning was performed of the fetus for biophysical profile, with image documentation. Color and pulse Doppler interrogation was also performed of the umbilical artery near its insertion into the placenta. COMPARISON: None. FINDINGS: General: A dichorionic diamniotic intrauterine is identified. Fetus A: Presentation: Vertex. Placenta: Placental position is posterior , without previa. Single deepest vertical pocket is 4.5 cm. heart rate: 158 beats per minute. Biophysical profile: Tone: 2 points. Movement: 2 points. Respiration: 2 points. Largest pocket of fluid: 2 points. Estimated gestational age from initial scan: 33 weeks 6 days. Fetus B: Presentation: Vertex. Placenta: Placental position is posterior , without previa. Single deepest vertical pocket is 6.5 cm. heart rate: 140 beats per minute. Estimated gestational age from initial scan: 33 weeks 6 days. Biophysical profile: Tone: 2 points. Movement: 2 points. Respiration: 2 points. Largest pocket of fluid: 2 points. IMPRESSION: Dichorionic diamniotic live twin is present. Gestational age 33 weeks 6 days. Both fetuses demonstrate BPP 8/8. We strive to produce accurate, complete, and clear reports of imaging services. To assist us in improving patient care, this report was composed using standard report templates and voice recognition software. Therefore, it may contain abnormal punctuation, insertions and/or omissions. Occasional wrong-word or sound-alike substitutions may occur. Though we review the report and make efforts to correct it, we do recommend that the report be read carefully in proper context to recognize any text inaccuracies. Dictated by: Christina Cates M.D. on 12/03/2021 at 18:03 Approved by: Christina Cates M.D. on 12/03/2021 at 18:08
[2021-12-03] MEDS: ACETAMINOPHEN 325 MG TABLET 975 MG PO (18:08)
[2021-12-03 18:27] VITALS: BP 110/67; PULSE 84; RESP 20; TEMP 36.9
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
[2021-12-03 19:21] LABS: Fetal Fibronectin Negative
== END 2021-12-03 18:20 | disposition home or self-care (01) ==
PROVIDERS: Admitting Provider Obstetrics & Gynecology; PCP Obstetrics & Gynecology; Referring Provider Obstetrics & Gynecology; Visit Provider Obstetrics & Gynecology
DX: O98.513 Other viral diseases complicating pregnancy, third trimester (principal); U07.1 COVID-19; O36.8132 Decreased fetal movements, third trimester, fetus 2; O36.8332 Maternal care for abnormalities of the fetal heart rate or rhythm, third trimester, fetus 2; O30.043 Twin pregnancy, dichorionic/diamniotic, third trimester; Z3A.33 33 weeks gestation of pregnancy
CPT/HCPCS: 59025; 59050; 76819; 80053; 82731; 85025; 87635; C9803; G0378; G0379

== ENCOUNTER 2021-12-10 15:04 | Outpatient (CLI) | payer OTHER, SELFPAY | END 2021-12-10 16:20 | disposition home or self-care (01) | LOC: LABOR 15:22 → OB 12-14 16:01 | PROVIDERS: PCP Obstetrics & Gynecology; Referring Provider Obstetrics & Gynecology; Visit Provider Obstetrics & Gynecology | DX: O30.043 Twin pregnancy, dichorionic/diamniotic, third trimester (principal); O47.03 False labor before 37 completed weeks of gestation, third trimester; Z3A.34 34 weeks gestation of pregnancy | CPT/HCPCS: 59025; G0378; G0379 ==

== ENCOUNTER → 2021-12-17 15:38 | Outpatient (CLI) | payer OTHER, SELFPAY ==
[2021-12-17 17:49] LABS: Add Manual Diff / Slide Review NO; Basophils Absolute Auto 100 /uL (0-100); Basophils Percent Auto 0.7 % (0-2); Eosinophils Absolute Auto 100 /uL (0-450); Eosinophils Percent Auto 0.7 % (2-4); Hematocrit 29.8 % (36-46); Hemoglobin 9.8 g/dL (12.0-16.0); Lymphocytes Absolute Auto 1700 /uL (1100-4500); Lymphocytes Percent Auto 21.3 % (25-40); Mean Corpuscular Volume 78.8 fL (80-100); Monocytes Absolute Auto 400 /uL (0-900); Monocytes Percent Auto 5.5 % (3-14); Neutrophils Absolute Auto 5800 /uL (1500-7000); Neutrophils Percent Auto 71.8 % (50-75); Platelet Count 251 X10^3/uL (150-400); Red Blood Cell Count 3.78 X10^6/uL (4.0-5.2); White Blood Cell Count 8.1 X10^3/uL (4.5-11.0)
[2021-12-17 18:46] LABS: Aspartate Aminotransferase 33 IU/L (14-36); BUN Creatinine Ratio 14.8 (6-22); Blood Urea Nitrogen 8 mg/dL (7-17); Estimated Glomerular Filt Rate > 60 mL/min (>60); GTT (PREG) 1 Hour PP 50gm Dose 89 mg/dL (76-139); Uric Acid 3.8 mg/dL (2.5-6.2)
[2021-12-17 18:51] LABS: Creatinine Urine Random 51.1 mg/dL; Protein (Total) Urine Random 10 mg/dL (0-12); Protein Creatinine Ratio Urine 0.19 GRAM/24H
== END ==
PROVIDERS: PCP Obstetrics & Gynecology; Referring Provider Obstetrics & Gynecology; Visit Provider Obstetrics & Gynecology
DX: O13.9 Gestational [pregnancy-induced] hypertension without significant proteinuria, unspecified trimester (principal); Z3A.26 26 weeks gestation of pregnancy
CPT/HCPCS: 36415; 82570; 82950; 84156; 84450; 84550; 85025

== ENCOUNTER 2021-12-17 17:45 | Outpatient (CLI) | payer OTHER, SELFPAY | END 2021-12-17 19:15 | disposition home or self-care (01) | LOC: LABOR 17:48 → OB 12-23 13:58 | PROVIDERS: PCP Obstetrics & Gynecology; Referring Provider Obstetrics & Gynecology; Visit Provider Obstetrics & Gynecology | DX: O30.003 Twin pregnancy, unspecified number of placenta and unspecified number of amniotic sacs, third trimester (principal); O09.513 Supervision of elderly primigravida, third trimester; Z3A.35 35 weeks gestation of pregnancy; O13.9 Gestational [pregnancy-induced] hypertension without significant proteinuria, unspecified trimester | CPT/HCPCS: 36415; 59025; 82570; 82950; 84156; 84450; 84550; 85025; G0378; G0379 ==

== ENCOUNTER 2021-12-25 05:47 | Inpatient (IN) | payer OTHER, MEDICAID, SELFPAY ==
[2021-12-25] VITALS (11 sets, daily range): BP systolic 106–175; BP diastolic 53–104; PULSE 68–90; RESP 12–16; TEMP 36.3–36.6; O2SAT 96–100
[2021-12-25 06:53] LABS: COVID19 -Nasal RAPID Negative (Negative)
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
[2021-12-25 07:55] LABS: Hematocrit 32.5 % (36-46); Hemoglobin 10.8 g/dL (12.0-16.0); Mean Corpuscular HGB Conc 33.3 % (30-36); Mean Corpuscular Hemoglobin 25.9 PG (26-34); Mean Corpuscular Volume 77.9 fL (80-100); Platelet Count 276 X10^3/uL (150-400); Red Blood Cell Count 4.17 X10^6/uL (4.0-5.2); Red Cell Distribution Width 16.4 % (11.6-14.8); White Blood Cell Count 8.1 X10^3/uL (4.5-11.0)
[2021-12-25 08:01] LABS: Add Manual Diff / Slide Review YES
[2021-12-25 08:24] LABS: Neutrophils Absolute Manual 5832 /uL (3000-5900); Total Cells Counted 100
[2021-12-25 08:25] LABS: Microcytosis 1+
[2021-12-25 08:26] LABS: Anisocytosis 1+
--- NOTE | 2021-12-25 12:46 | PM.PREOP ---
Pre-operative Note COVID-19 COVID-19 status: Negative Result date/Date tested (Pos, Neg/Pending): 12/25/21 Criteria for continued procedure: Non-surgical alternatives not available or appropriate per current SOC Interval Note History & Physical reviewed/Exam performed by Physician: Yes Changes to H&P: No H&P completed within 30 days and has changed as indicated here:: 12/25/21
[2021-12-25] MEDS: CEFAZOLIN 2 GM/20 ML SYRINGE IV (13:10)
--- NOTE | 2021-12-25 13:41 | SUR.OPER ---
Supine on Padded OR bed, head on pillow, safety belt at thigh, arms secured on padded arm boards at <90 degrees abduction. Bump under right buttock. Legs uncrossed, gel pad to heels, tape over blanket to lower legs.
--- NOTE | 2021-12-25 13:50 | SUR.OPER ---
Viable Baby Boy A born at 1342. Viable Baby Boy B born at 1343. Baby A with no cord clamp, Baby B with cord clamp. Respiratory Therapy and L&D RNs present to attend to both babies. Placenta x1 and cord blood from Baby A & Baby B given to L&D RN.
[2021-12-25] MEDS: LACTATED RINGERS 1,000 ML 100 ML IV ×2 (14:15→16:48)
--- NOTE | 2021-12-25 14:33 | P.OP_ITS ---
Operative Date/Time/Diagnoses Date of procedure: 12/25/21 Time of procedure: 14:34 Pre-op diagnosis: Thirty-seven weeks gestation Dichorionic/diamniotic twins Previous section Post-op diagnosis: same Procedure & Clinicians Procedure: Repeat low-transverse section Same procedure as scheduled: Yes Indications: 37 weeks gestation Previous section Dichorionic/diamniotic twins Surgeon: Radha Sifuentes Yes if Unassisted: No Shear Operator Helper: Мария Anaya Reason for Shear Operator Helper: The temporary office assistant was necessary to retract upon entry into the abdomen and uterus. She was necessary to assist in delivery of both infants, by providing fundal pressure. She is cyst it in closure by retracting, clipping suture, and closing the contralateral fascia. Anesthesia Type: Spinal (With Duramorph) Operative Notes Findings: Baby A in the transverse lie head right position Baby B in the vertex presentation Clear amniotic fluid in both sacs Normal uterus, tubes, and ovaries Closure Type: primary Specimen(s): cord blood (X2) Intraoperative meds administered: Duramorph, Ketorolac and Pitocin Applied: Catheter (To continuous drainage) Estimated Blood Loss (mL): 600 Blood products transfused: none Procedure in detail: The patient was taken to the operating room where she was placed in the seated position. Spinal anesthesia with Duramorph was administered. The patient was then placed in the dorsal supine position with a leftward tilt. She was prepped and draped in the usual sterile fashion. A timeout was performed. After spinal analgesia was found to be adequate, a Pfannenstiel skin incision was made through the previous incision and carried through to the underlying layer fascia. The fascia was nicked in the midline, and the incision extended bilaterally with the Butcher scissors. The superior aspect of the fascial incision was grasped with a Karon clamps, elevated, and the underlying rectus muscles dissected off sharply and bluntly. Attention was then turned to the inferior aspect of this incision which in a similar fashion was grasped with a [place] clamps, elevated, and the underlying rectus muscles dissected off sharply and bluntly. The rectus muscles were in the midline. The peritoneum was identified, grasped between 2 hemostats, and entered sharply with the Metzenbaum scissors. This incision was extended superiorly and inferiorly with good visualization of the bladder. The bladder blade was inserted. The vesicouterine peritoneum was identified, grasped with the pickup, and entered sharply with the Metzenbaum scissors. This incision was extended bilaterally, and the bladder flap was created digitally. The bladder blade was reinserted. The lower uterine segment was incised in a transverse fashion with the scalpel. Upon entering the first amniotic sac there was moderate amount of clear amniotic fluid and Baby A was found to be in the transverse lie, back down position. The 's head was brought to the incision and delivered with vacuum assistance. The nose and mouth were suctioned with bulb suction. The remainder of the body delivered without difficulty. The cord was double clamped and cut after one minute. The was handed off to waiting RN and RT. Baby B was in the vertex presentation. The sac was ruptured with copious clear amniotic fluid. The 's head was delivered without difficulty. The nose and mouth were suctioned with bulb suction. The cord was double clamped and cut after 1 minute. Cord bloods were obtained from both placentas. The placentas were delivered manually. The uterus was cleared of all clots and debris. The uterine incision was repaired with #1 chromic in a running interlocking fashion, and a second layer the same suture was used for an imbricating layer. Hemostasis was achieved. The tubes and ovaries were examined and were found to be normal. The gutters were cleared of all clots and debris. The bladder flap was reapproximated using 2-0 Vicryl in a running fashion. The parietal peritoneum was closed using 2-0 Vicryl in a running fashion. The fascia was reapproximated using 0 Vicryl in a running fashion. The subcutaneous layer was copiously irrigated with warm normal saline. 6 simple interrupted sutures of 3- 0 Vicryl were placed to reapproximate the subcutaneous layer. The skin was closed with 4-0 Monocryl in a subcuticular fashion. Steri-Strips were placed. An Aquacel dressing was placed. The uterus was expressed of a small amount of old blood and clot. Sponge, lap, and instrument counts were correct x-2. The patient tolerated the procedure well, and was taken to PACU in stable condition. Complications: none Baby 1: Gender: Male Presentation: breech (Transverse lie, head right) Placental Delivery Description: Spontaneous Cord Vessel Description: 3 Vessels 2: Infant Gender: Male Presentation: vertex Position: Right Occiput Transverse Placental Delivery Description: Spontaneous and Manual Removal Cord Vessel Description: 3 Vessels Post-operative Condition: stable Disposition: PACU Aftercare: routine postop
--- NOTE | 2021-12-25 14:55 | SUR.PHASEI ---
BP elevated, pt with no c/o. Dr Waldron made aware, assessed pt at bedside d/c'ed one IV fluid bag. BP decreasing.
[2021-12-25] MEDS: LABETALOL 20 MG/4 ML SYRINGE 10 MG IV (15:10)
--- NOTE | 2021-12-25 15:11 | SUR.PHASEI ---
Report called, Dr. Waldron, made aware of continued elevated BP, labetalol given as instructed.
--- NOTE | 2021-12-25 15:38 | SUR.PHASEI ---
Dr Waldron to bedside again, ok for transfer. Pt transferred to and left in stable condition.
[2021-12-25] MEDS: LANOLIN OINT 7 GM 1 APPLIC TOP (19:26)
[2021-12-25] MEDS: diphenhydrAMINE 50 MG/ML VIAL 25 MG IV (19:27)
[2021-12-25] MEDS: ACETAMINOPHEN 325 MG TABLET 650 MG PO (21:39)
[2021-12-25] MEDS: KETOROLAC 30 MG/ML VIAL IV (23:15)
[2021-12-26] MEDS: KETOROLAC 30 MG/ML VIAL IV ×2 (05:11→11:02)
[2021-12-26] MEDS: ACETAMINOPHEN 325 MG TABLET 650 MG PO ×3 (06:55→23:10)
[2021-12-26 06:57] LABS: Hematocrit 23.6 % (36-46); Hemoglobin 7.9 g/dL (12.0-16.0)
[2021-12-26] MEDS: PRENATAL VIT,CALC/IRON/FOLIC 1 TABLET 1 TAB PO (09:07)
[2021-12-26] MEDS: CITALOPRAM 10 MG TABLET PO (09:07)
[2021-12-26] MEDS: DOCUSATE 100 MG CAPSULE 200 MG PO (09:08)
[2021-12-26] MEDS: OXYCODONE IR 10 MG TABLET PO ×3 (09:08→23:46)
[2021-12-26] MEDS: IBUPROFEN 600 MG TABLET PO ×2 (17:12→23:10)
[2021-12-27] MEDS: OXYCODONE IR 10 MG TABLET PO ×3 (04:14→15:23)
[2021-12-27] MEDS: ACETAMINOPHEN 325 MG TABLET 650 MG PO ×2 (06:48→13:26)
[2021-12-27] MEDS: IBUPROFEN 600 MG TABLET PO ×2 (06:48→13:26)
[2021-12-27] MEDS: DOCUSATE 100 MG CAPSULE 200 MG PO (10:37)
[2021-12-27 10:38] VITALS: TEMP 37.1
[2021-12-27] MEDS: PRENATAL VIT,CALC/IRON/FOLIC 1 TABLET 1 TAB PO (10:38)
[2021-12-27] MEDS: CITALOPRAM 10 MG TABLET PO (10:40)
[2021-12-27 13:26] VITALS: TEMP 37.1
[2021-12-27 15:23] VITALS: TEMP 36.8
[2021-12-27 16:25] VITALS: BP 137/72; PULSE 59; RESP 16; TEMP 36.8
--- NOTE | 2021-12-30 06:21 | PM.OBPN.1 ---
Subjective - OB Subjective Patient comments: no complaints, pain well controlled, tolerating diet and other (Voided without the catheter) baby status: doing well (X2) and nursing well (X2) feeding status: exclusively breast feeding Date Patient Seen: 12/26/21 Time Patient Seen: 09:30 Exam Vital Signs (past 8 hours): Oxygen Delivery Method Room Air Narrative Exam Narrative: Generally: Patient walking around in room, no acute distress Lungs: Clear to auscultation bilaterally Cardiovascular: Regular rate and rhythm Abdomen: Appropriately tender Fundus: Firm at U Incision: Clean dry and intact with Aquacel dressing Extremities: 1+ edema, negative Homans Objective Labs Result Diagrams: 12/26/21 06:18 Assessment & Plan Plan day: 1 plan OB: routine postop care Time Spent With Patient Time: Total time spent is greater than 50% in coordination of care (as documented) at patient's floor/unit and/or counseling patient: Time with patient: 15-24 minutes
--- NOTE | 2021-12-30 06:23 | P.DS_ITS ---
Discharge Providers Provider Date of admission: 12/25/21 05:47 Discharge Date: 12/27/21 Primary care physician: Radha Devine MD Consults: 12/25/21 16:36 Consult to Traffic Engineer Routine Comment: Discharge provider: Radha Devine MD Summary Hospital Course Date Patient Seen: 12/27/21 Time Patient Seen: 07:30 Diagnoses: 37 weeks gestation Dichorionic/diamniotic twins Previous section Hospital Course: Patient is a 36-year-old 2 para 2001 who presented on December 25, 2021 for a scheduled repeat low-transverse section at 37 weeks gestation with dichorionic/diamniotic twins. She had had a prior section. She underwent this procedure without complication. Her postoperative course was unremarkable. She has voided without the catheter. She is tolerating a diet. is going well. Bleeding is tapering. She is ambulating without assistance. No nausea or vomiting. She is discharged home on postop day # 2. Peripartum Data Infant Delivery Method: Section (Repeat) Laceration Description: None Episiotomy description: None Procedures: Spinal anesthesia Repeat low-transverse section complications: none [place] 1: Gender: Male Disposition of : home 2: Gender: Male Disposition of : home Status at Discharge Cognitive/behavioral status at discharge: oriented Functional status at discharge: independent ambulation Overall status at discharge: patient is progressing back to baseline Time Spent with Patient Time attestation: Total time spent providing and/or coordinating discharge services: Time spent: Less than 30 minutes Objective Labs Result Diagrams: 12/26/21 06:18 Exam Vital Signs (past 8 hours): Oxygen Delivery Method Room Air Narrative Exam Narrative: Generally: Patient lying in bed, no acute distress Lungs: Clear to auscultation bilaterally Cardiovascular: Regular rate and rhythm Fundus: Firm at U Incision: Clean dry and intact with Aquacel dressing Extremities: 1+ edema, negative Homans Discharge Plan Discharge Plan Patient Disposition: Home Provider Discharge Comment: Call with fever, chills, redness or drainage around the incision, or bleeding vaginally more than a pad in an hours Ibuprofen 600 mg every 6 hours as needed Tylenol 650 mg every 6 hours as needed Stool softener once or twice a day as needed Make sure drinking lots of fluid Discharge orders & Medications Prescriptions: New oxycodone 5 mg tablet 5 mg PO Q4H PRN (Reason: pain) Qty: 30 0RF Rx Instructions: 1-2 tabs every 4-6 hours as needed citalopram [Celexa] 20 mg tablet 20 mg PO DAILY Qty: 30 11RF docusate sodium [Colace] 100 mg capsule 100 mg PO BID Qty: 30 2RF ibuprofen 600 mg tablet 600 mg PO TID PRN (Reason: cramping) Qty: 30 2RF Continued prenat.vits,anna,[id number] Tablet 1 tab PO DAILY 0RF hydroxyzine HCl 25 mg tablet 25 mg PO TID PRN (Reason: anxiety) Qty: 20 2RF Rx Instructions: 1/2-1 tablet every 8 hours as needed for anxiety Discontinued ondansetron 4 mg tablet,disintegrating 4 mg PO Q6H PRN (Reason: nausea and vomiting) Qty: 20 2RF omeprazole 20 mg capsule,delayed release(DR/EC) 20 mg PO DAILY Qty: 90 3RF citalopram [Celexa] 10 mg tablet 10 mg PO DAILY Qty: 30 3RF metoclopramide HCl [Reglan] 10 mg tablet 10 mg PO Q6H PRN (Reason: nausea and vomiting) Qty: 20 0RF Follow up/Referrals: Radha Devine MD [Primary Care Provider] - (My office will call to schedule follow up appt's. If you have any questions/concerns or need to reshcedule please call .) Diet/Activity/Treatments Diet: Regular Activity: No heavy lifting Skin/Wound/Dressing Care Report to your healthcare provider any signs of infection, such as:: chills, fever, increased pain, unusual drainage and unusual redness Dressing: Remove in one week with adhesive remover Leave steri strips in place Visit Report/Discharge Packet Instructions: DI for , DI for Prescription Opioid Use Stand Alone Forms: Discharge: Care Discharge Data Primary Care Provider: Radha Devine
== END 2021-12-27 17:30 | disposition home or self-care (01) | DRG 788 ==
PROVIDERS: Admitting Provider Obstetrics & Gynecology; PCP Obstetrics & Gynecology; Referring Provider Obstetrics & Gynecology; Visit Provider Obstetrics & Gynecology
PROC: 10D00Z1 Extraction of Products of Conception, Low, Open Approach (ICD-10-PCS; CPT 59514; principal; 2021-12-25 07:45)
DX: O34.211 Maternal care for low transverse scar from previous cesarean delivery (principal); Z3A.37 37 weeks gestation of pregnancy; Z37.2 Twins, both liveborn; O30.043 Twin pregnancy, dichorionic/diamniotic, third trimester; Z20.822 Contact with and (suspected) exposure to COVID-19
CPT/HCPCS: 36415; 59050; 59510; 59514; 85007; 85014; 85018; 85025; 86850; 86900; 86901; 87635; C9803; J0690; J1170; J1200; J1885; J2250; J2274; J2405; J2590; J2704; J3010

== ENCOUNTER → 2024-08-16 15:17 | Outpatient (CLI) | payer SELFPAY | PROVIDERS: PCP Physician Assistant Medical; Visit Provider Physician Assistant Medical | DX: L01.00 Impetigo, unspecified (principal) | CPT/HCPCS: 87070; 87075; 87077; 87147; 87186; 87205 ==